=== PATIENT | female | born 1975 | race Caucasian/White ===

== ENCOUNTER 2016-05-01 19:09 | Emergency (ER) | payer OTHER ==
[~2016-05-01] VITALS: Ht 167.6 cm; Wt 87.0 kg
[~2016-05-01 19:09] MED LIST: HYDR-3516 PO; HYDR-3533 PO; IBUP800T23 PO; MELO-1 PO; TAMS5CAP PO
[2016-05-01 19:11] VITALS: BP 122/79; PULSE 64; RESP 16; TEMP 98.3; O2SAT 98
[2016-05-01] MEDS ORDERED: SODIUM CHLOR 0.9% 1000 ML INJ 1,000 ML IV ONE (19:44)
[2016-05-01] MEDS ORDERED: ONDANSETRON HCL 4 MG/2 ML VIAL IVP ONE (19:45)
[2016-05-01] MEDS ORDERED: KETOROLAC TROMETHAMINE 30 MG/ML (IVP) VIAL IVP ONE (19:45)
[2016-05-01] MEDS ORDERED: MORPHINE SULFATE 4 MG/ML INJ IV ONE (19:45)
--- NOTE | 2016-05-01 19:51 | PD ---
HPI Chief Complaint: Abdominal Pain Time Seen by Provider: 19:38 Travel History International Travel<30 days: No Contact w/Intl Traveler<30days: No Traveled to known affect area: No History of Present Illness HPI 41-year-old female here for evaluation of left lower quadrant abdominal pain. Symptoms started suddenly today at around 2 PM. She describes it as a sharp pain in her left lower quadrant which is constant but sometimes comes in waves. She endorses nausea as well. She reports a history of several kidney stones over 15 years ago, one kidney stone in February 2016. This pain feels different typically her kidney stone pain starts in the flank and then radiates into the abdomen. She has no flank pain at this time and her current pain is different from kidney stones that she has had in the past. She does endorse urinary hesitancy. She is uncertain if there is any hematuria because she is currently on her menstrual period. Denies flank pain, vomiting, fevers or chills, constipation, rash. She took meloxicam 5 hours ago which only helped a little bit. No history of diverticulitis or diverticulosis. No other complaints. PFSH Past Medical History Cardiovascular Problems: Yes (HTN) Diminished Hearing: No Hypertension: Yes Kidney Stones: Yes Tetanus Vaccination: Unknown Influenza Vaccination: No ?: Not LMP: 04/30/16 : 3 Para: 3 Past Surgical History Cholecystectomy: Yes Social History Alcohol Use: No Tobacco Use: No Substance Use: No Allergies-Medications (Allergen,Severity, Reaction): Coded Allergies: Erythromycin (Verified Allergy, Intermediate, HIVES, 05/01/16) Sulfa (Verified Allergy, Intermediate, HIVES, 05/01/16) Ceclor (Verified Allergy, Unknown, 05/01/16) Compazine (Verified Allergy, Unknown, 05/01/16) Uncoded Allergies: ANTI-NAUSEA MEDICATION (Allergy, Intermediate, ANXIETY, 02/06/16) Reported Meds & Prescriptions Reported Meds & Active Scripts Active Ondansetron Odt 4 Mg Tab 4 Mg SL Q6HR PRN Flomax (Tamsulosin HCl) 0.4 Mg Cap 0.4 Mg PO HS 7 Days Lortab (Hydrocodone-Acetaminophen) 5-325 Mg Tab 1 Tab PO Q6H PRN Reported Celexa (Citalopram Hydrobromide) 20 Mg Tab 20 Mg PO HS Wellbutrin Xl 24 HR (Bupropion HCl) 300 Mg Tab 300 Mg PO DAILY Wellbutrin Xl 24 HR (Bupropion HCl) 150 Mg Tab 150 Mg PO DAILY Review of Systems Except as stated in HPI: all other systems reviewed are Neg Physical Exam Narrative GENERAL: Well-developed well-nourished female who appears uncomfortable on initial examination, rocking back and forth on hospital bed. SKIN: Warm and dry. HEAD: Atraumatic. Normocephalic. EYES: Pupils equal and round. No scleral icterus. No injection or drainage. ENT: No nasal bleeding or discharge. Mucous membranes pink and moist. NECK: Trachea midline. No JVD. CARDIOVASCULAR: Regular rate and rhythm. No murmur appreciated. RESPIRATORY: No accessory muscle use. Clear to auscultation. Breath sounds equal bilaterally. GASTROINTESTINAL: Abdomen soft, focal left lower quadrant tenderness without guarding. No CVA tenderness. No palpable masses. MUSCULOSKELETAL: No obvious deformities. No edema. NEUROLOGICAL: Awake and alert. No obvious cranial nerve deficits. Motor grossly within normal limits. Normal speech. PSYCHIATRIC: Appropriate mood and affect; insight and judgment normal. Data Data Last Documented VS Orders Complete Blood Count With Diff (05/01/16 19:44) Comprehensive Metabolic Panel (05/01/16 19:44) Urinalysis - C+S If Indicated (05/01/16 19:44) Ed Urine Pregnancytest Poc (05/01/16 19:44) Ct Abd/Pel W/O Iv Contrast (05/01/16 19:44) Ketorolac Inj (Toradol Inj) (05/01/16 19:45) Morphine Inj (Morphine Inj) (05/01/16 19:45) Ondansetron Inj (Zofran Inj) (05/01/16 19:45) Sodium Chlor 0.9% 1000 Ml Inj (Ns 1000 M (05/01/16 19:44) Lipase (05/01/16 19:44) Morphine Inj (Morphine Inj) (05/02/16 00:45) Ondansetron Inj (Zofran Inj) (05/02/16 00:45) MDM Medical Decision Making Medical Screen Exam Complete: Yes Emergency Medical Condition: Yes Medical Record Reviewed: Yes Differential Diagnosis Ureteral stone, hydronephrosis, pyelonephritis, diverticulitis, colitis, ovarian torsion Narrative Course 41-year-old female with a history of kidney stones in the past presents now for evaluation of acute onset of left lower quadrant abdominal pain started today at 2 PM. This is different from her previous kidney stone pain which usually starts in the flank and radiates into the abdomen. She does endorse nausea as well his urinary hesitancy. On initial examination she does appear uncomfortable, rocking back and forth on bed. The patient was initially seen in triage were basic lab work, urinalysis and CT of the abdomen and pelvis have been ordered. The patient will be moved to a medical bed will become's available. Scripts Ondansetron Odt 4 Mg Tab4 Mg SL Q6HR PRN (Nausea/Vomiting) #16 TAB Ref 0 Prov:Radha Alejo 05/01/16 Tamsulosin (Flomax)0.4 Mg Cap0.4 Mg PO HS 7 Days Ref 0 Prov:Radha Alejo 05/01/16 Hydrocodone-Acetaminophen (Lortab)5-325 Mg Tab1 Tab PO Q6H PRN (PAIN) #16 TAB Ref 0 Prov:Ruddy Ramirez MD 05/01/16 Lee Brown May 01, 2016 19:50
[2016-05-01 20:43] LABS: AUTOMATED NEUTROPHIL # 9.3 TH/MM3 (1.8-7.7); BASOPHIL # 0.1 TH/MM3 (0-0.2); BASOPHIL % 0.4 % (0.0-2.0); EOSINOPHIL # 0.8 TH/MM3 (0-0.4); EOSINOPHIL % 5.3 % (0.0-4.0); HEMATOCRIT 37.4 % (35.0-46.0); HEMO FLAGS DIFF FINAL; LYMPH % 21.4 % (9.0-44.0); MEAN CELL VOLUME 79.9 FL (80.0-100.0); MEAN CORPUSCULAR HEMOGLOBIN 26.7 PG (27.0-34.0); MEAN CORPUSCULAR HGB CONC 33.4 % (32.0-36.0); MONO % 7.5 % (0.0-8.0); NEUT % 65.4 % (16.0-70.0); PLATELET COUNT 226 TH/MM3 (150-450); RED BLOOD COUNT 4.68 MIL/MM3 (4.00-5.30); RED CELL DISTRIBUTION WIDTH 13.6 % (11.6-17.2); WHITE BLOOD COUNT 14.2 TH/MM3 (4.0-11.0)
[2016-05-01 20:59] LABS: BLOOD, URINE LARGE (NEG); COMMENT (UR) CULT NOT INDICATED; CULTURE IF INDICATED CULT NOT INDICATED; GLUCOSE,URINE NEG (NEG); KETONE, URINE NEG (NEG); MUCUS URINE FEW /lpf (OCC); NITRITE,URINE NEG (NEG); SQUAMOUS EPITHELIAL CELL URINE <1 /hpf (0-5); URINE COLOR YELLOW (YELLW/STRAW)
[2016-05-01 21:04] LABS: ANION GAP 8 MEQ/L (5-15); AST (GOT) 10 U/L (15-37); BICARBONATE 28.6 MEQ/L (21.0-32.0); BLOOD UREA NITROGEN 17 MG/DL (7-18); CHLORIDE 103 MEQ/L (98-107); GLOMERULAR FILTRATION RATE 50 ML/MIN (>89); POTASSIUM 3.6 MEQ/L (3.5-5.1); SODIUM (NA) 140 MEQ/L (136-145)
[2016-05-01 21:07] LABS: ALKALINE PHOSPHATASE 69 U/L (45-117); ALT (GPT) 24 U/L (10-53); TOTAL BILIRUBIN ADULT 0.1 MG/DL (0.2-1.0)
--- NOTE | 2016-05-01 21:55 | RADRPT ---
EXAM DATE/TIME: 05/01/2016 20:41 [facility] COMPARISON: CT ABDOMEN & PELVIS W/O CONTRAST, February 06, 2016, 21:01. INDICATIONS : Lower abdominal and flank pain. ORAL CONTRAST: No oral contrast ingested. RADIATION DOSE: 14.89 CTDIvol (mGy) MEDICAL HISTORY : Hypertension. Renal calculi. SURGICAL HISTORY : Cholecystectomy. ENCOUNTER: Initial ACUITY: 1 day PAIN SCALE: 5/10 LOCATION: Bilateral lower quadrant TECHNIQUE: Volumetric scanning of the abdomen and pelvis was performed. Using automated exposure control and ad justment of the mA and/or kV according to patient size, radiation dose was kept as low as reasonably achievable to obtain optimal diagnostic quality images. FINDINGS: Significant left-sided hydronephrosis and hydroureter remain evident. There is a 6.8 mm calculus lodg ed in the distal left ureter. A similar appearing calculus was seen on the previous study. It previou sly measured 5.6 mm. A small nonobstructing calculus remains evident in the lower pole of the left kidney. Abdominal and pelvic structures otherwise stable. CONCLUSION: Chronic left hydronephrosis and hydroureter with persistent large calculus lodged within the distal l eft ureter. Stable small nonobstructing calculus right kidney. No other significant abnormality. Brad Garrido MD on May 01, 2016 at 21:48 Board Certified Radiologist. This report was verified electronically.
--- NOTE | 2016-05-01 22:21 | PD ---
Physical Exam Date Seen by Provider: May 01, 2016 Time Seen by Provider: 22:13 Narrative 41-year-old female presents to the emergency department for evaluation of left lower quadrant abdominal pain that started today around 2 PM. Patient was initially seen in triage workup was initiated in triage. Upon arrival to the room, patient has not yet taken her pain medication, but states that her pain has much improved. She currently rates to 3/10. She does report a history of kidney stones, but states she has not had one in over 15 years until February. She states that after she was seen in February for kidney stone, she felt much better until today. The patient does have nausea, but no vomiting. No fevers. Patient states this is not her typical kidney stone pain. Patient does not currently see a urologist. She reports history of hypertension and depression. No other complaints. GENERAL: Well-developed well-nourished female patient, ambulatory. Afebrile. SKIN: Warm and dry. HEAD: Normocephalic. Atraumatic. EYES: No scleral icterus. No injection or drainage. NECK: Supple, trachea midline. No JVD or lymphadenopathy. CARDIOVASCULAR: Regular rate and rhythm without murmurs, gallops, or rubs. RESPIRATORY: Breath sounds equal bilaterally. No accessory muscle use. Lungs sounds are clear to auscultation. GASTROINTESTINAL: Abdomen soft and nondistended. Patient has mild tenderness over LLQ. MUSCULOSKELETAL: No cyanosis, or edema. BACK: Nontender without obvious deformity. No CVA tenderness. Data Data Last Documented VS Vital Signs Date Time Temp Pulse Resp B/P Pulse Ox O2 Delivery O2 Flow Rate FiO2 05/01/16 19:20 16 05/01/16 19:11 98.3 64 122/79 98 Orders Complete Blood Count With Diff (05/01/16 19:44) Comprehensive Metabolic Panel (05/01/16 19:44) Urinalysis - C+S If Indicated (05/01/16 19:44) Ed Urine Pregnancytest Poc (05/01/16 19:44) Ct Abd/Pel W/O Iv Contrast (05/01/16 19:44) Ketorolac Inj (Toradol Inj) (05/01/16 19:45) Morphine Inj (Morphine Inj) (05/01/16 19:45) Ondansetron Inj (Zofran Inj) (05/01/16 19:45) Sodium Chlor 0.9% 1000 Ml Inj (Ns 1000 M (05/01/16 19:44) Lipase (05/01/16 19:44) Labs Laboratory Tests Test 05/01/16 05/01/16 19:50 20:30 White Blood Count 14.2 TH/MM3 Red Blood Count 4.68 MIL/MM3 Hemoglobin 12.5 GM/DL Hematocrit 37.4 % Mean Corpuscular Volume 79.9 FL Mean Corpuscular Hemoglobin 26.7 PG Mean Corpuscular Hemoglobin 33.4 % Concent Red Cell Distribution Width 13.6 % Platelet Count 226 TH/MM3 Mean Platelet Volume 9.7 FL Neutrophils (%) (Auto) 65.4 % Lymphocytes (%) (Auto) 21.4 % Monocytes (%) (Auto) 7.5 % Eosinophils (%) (Auto) 5.3 % Basophils (%) (Auto) 0.4 % Neutrophils # (Auto) 9.3 TH/MM3 Lymphocytes # (Auto) 3.0 TH/MM3 Monocytes # (Auto) 1.1 TH/MM3 Eosinophils # (Auto) 0.8 TH/MM3 Basophils # (Auto) 0.1 TH/MM3 CBC Comment DIFF FINAL Differential Comment Sodium Level 140 MEQ/L Potassium Level 3.6 MEQ/L Chloride Level 103 MEQ/L Carbon Dioxide Level 28.6 MEQ/L Anion Gap 8 MEQ/L Blood Urea Nitrogen 17 MG/DL Creatinine 1.19 MG/DL Estimat Glomerular Filtration 50 ML/MIN Rate Random Glucose 89 MG/DL Calcium Level 8.7 MG/DL Total Bilirubin 0.1 MG/DL Aspartate Amino Transf 10 U/L (AST/SGOT) Alanine Aminotransferase 24 U/L (ALT/SGPT) Alkaline Phosphatase 69 U/L Total Protein 7.2 GM/DL Albumin 3.7 GM/DL Lipase 158 U/L Urine Color YELLOW Urine Turbidity CLEAR Urine pH 5.0 Urine Specific [place] 1.019 Urine Protein NEG mg/dL Urine Glucose (UA) NEG mg/dL Urine Ketones NEG mg/dL Urine Occult Blood LARGE Urine Nitrite NEG Urine Bilirubin NEG Urine Urobilinogen LESS THAN 2.0 MG/DL Urine Leukocyte Esterase SMALL Urine RBC /hpf Urine WBC 3 /hpf Urine Squamous Epithelial <1 /hpf Cells Urine Mucus FEW /lpf Microscopic Urinalysis Comment CULT NOT INDICATED MDM Medical Record Reviewed: Yes Supervised Visit with ADRIANE: No Interpretation(s) Last Impressions Abdomen/Pelvis CT 05/01/161943 Signed Impressions: Service Date/Time: Sunday, May 01, 2016 20:41 - CONCLUSION: Chronic left hydronephrosis and hydroureter with persistent large calculus lodged within the distal left ureter. Stable small nonobstructing calculus right kidney. No other significant abnormality. Brad Garrido MD Differential Diagnosis Nephrolithiasis versus ureterolithiasis versus diverticulitis versus UTI Narrative Course 41-year-old female presents to the emergency department for evaluation of left lower quadrant abdominal pain that started this afternoon around 2 PM. Patient has not yet received her pain medication appears well on exam. She currently rates her pain 3/10. CBC shows leukocytosis of 14.2. CMP shows currently 1.19 , no acute abnormalities. Lipase is 158. Urinalysis shows large occult blood, small leukocyte esterase. CT abdomen/pelvis shows Chronic left hydronephrosis and hydroureter with persistent large calculus lodged within the distal left ureter. Stable small nonobstructing calculus right kidney. No other significant abnormality. Patient is given medications that were previously ordered, normal saline 1 L IV bolus, Toradol 30 mg IV, morphine 4 mg IV, Zofran 4 mg IV. I discussed the results with the patient. I also discussed the exam and results with my attending physician, Dr. Ramirez. Patient does appear well on exam and does appear comfortable. She agrees the pain is minimal. The patient will be discharged home with prescription for pain medication. She is instructed to follow-up the urologist. She verbalizes agreement and wants to go home. She is instructed to return immediately for any worsening symptoms. She verbalizes agreement. The patient was discharged in stable condition with instructions, including return instructions and follow up instructions. Diagnosis Primary Impression: Nephrolithiasis Referrals: Chapincito Torres MD call for appointment Patient Instructions: General Instructions, Kidney Stones (ED) Additional Instruction: Take Lortab as instructed as needed for pain. Caution this can make you drowsy so do not drive after taking. Take Zofran as instructed as needed for nausea/vomiting. Follow-up the urologist. Dr. Torres is the urologist on-call today. Return to the emergency department immediately for any acute worsening of symptoms. Med/Other Pt SpecificInfo: Prescription(s) given Scripts Ondansetron Odt 4 Mg Tab4 Mg SL Q6HR PRN (Nausea/Vomiting) #16 TAB Ref 0 Prov:Radha Alejo 05/01/16 Tamsulosin (Flomax)0.4 Mg Cap0.4 Mg PO HS 7 Days Ref 0 Prov:Radha Alejo 05/01/16 Hydrocodone-Acetaminophen (Lortab)5-325 Mg Tab1 Tab PO Q6H PRN (PAIN) #16 TAB Ref 0 Prov:Ruddy Ramirez MD 05/01/16 Disposition: 01 DISCHARGE HOME Condition: Stable Radha Alejo May 01, 2016 22:21
[2016-05-01] MEDS ORDERED: WELLTAB39 PO (22:22)
[2016-05-01] MEDS ORDERED: BUPR150XL PO (22:22)
[2016-05-01] MEDS ORDERED: CELE20TA PO (22:22)
[2016-05-01] MEDS ORDERED: HYDR-3533 PO (22:24)
[2016-05-01] MEDS ORDERED: TAMS5CAP PO (22:25)
[2016-05-01] MEDS ORDERED: ONDA4TAB7 SL (22:25)
[2016-05-02 00:04] VITALS: RESP 16
[2016-05-02] MEDS ORDERED: ONDANSETRON HCL 4 MG/2 ML VIAL IV PUSH ONE (00:45)
[2016-05-02] MEDS ORDERED: MORPHINE SULFATE 4 MG/ML INJ IV PUSH ONE (00:45)
[2016-05-02 01:26] VITALS: BP 112/66
== END 2016-05-02 01:31 | disposition home or self-care (01) ==
LOC: NEPA 19:09
DX: N13.2 Hydronephrosis with renal and ureteral calculous obstruction (principal)
CPT/HCPCS: 74176; 80053; 81001; 83690; 85025; 96361; 96374; 96375; 96376; 99284; J1885; J2270; J2405; J7030